=== PATIENT | male | born 1960 | race Caucasian/White ===

== ENCOUNTER 2019-02-22 21:02 | Outpatient (REF) | payer OTHER, SELFPAY ==
[2019-02-22 18:38] LABS: Anion Gap 10.9 mmol/L (3-11); BUN 11 mg/dL (7-18); CO2 26.1 mmol/L (21.0-32.0); Calcium 8.7 mg/dL (8.5-10.1); Calculated LDL 112 mg/dL; Chloride 103 mmol/L (98-107); Cholesterol 224 mg/dL (<200); Glucose 88 mg/dL (74-106); HDL Cholesterol 107 mg/dL (40-60); Potassium 4.4 mmol/L (3.5-5.1); Sodium 140 mmol/L (136-145); Triglyceride 26 mg/dL (<150)
== END 2019-02-22 21:22 ==
LOC: NCHCN 21:02
PROVIDERS: PCP Family Medicine; Visit Provider Nurse Practitioner Family
DX: Z00.00 Encounter for general adult medical examination without abnormal findings (principal); Z13.220 Encounter for screening for lipoid disorders; Z13.228 Encounter for screening for other metabolic disorders
CPT/HCPCS: 80048; 80061

== ENCOUNTER 2020-05-11 18:42 | Outpatient (REF) | payer BC, OTHER, SELFPAY ==
[2020-05-11 19:17] LABS: ALT 31 U/L (16-63); AST 24 U/L (15-37); Albumin 3.8 g/dL (3.4-5.0); Alkaline Phosphatase 39 U/L (46-116); Anion Gap 6.1 mmol/L (3-11); BUN 12 mg/dL (7-18); Bilirubin, Total 0.3 mg/dL (0.2-1.0); CO2 25.9 mmol/L (21.0-32.0); Calcium 8.7 mg/dL (8.5-10.1); Chloride 101 mmol/L (98-107); Glucose 142 mg/dL (74-106); Potassium 3.7 mmol/L (3.5-5.1); Sodium 133 mmol/L (136-145)
== END 2020-05-11 18:43 | disposition home or self-care (01) ==
LOC: NCHCN 18:42
PROVIDERS: PCP Family Medicine; Visit Provider Nurse Practitioner Family
DX: Z00.00 Encounter for general adult medical examination without abnormal findings (principal); F10.20 Alcohol dependence, uncomplicated
CPT/HCPCS: 80053

== ENCOUNTER 2022-03-28 00:22 | Outpatient (CLI) | payer BC, OTHER, SELFPAY ==
--- NOTE | 2022-03-28 | DI.RAD_ITS ---
Exam(s) XR KNEE LT 3V AP,LAT,KLEBER EXAM: XR KNEE LT 3V AP,LAT,KLEBER CLINICAL HISTORY: BILAT KNEE PAIN, M25.569. TECHNIQUE: 2D digital imaging was performed of the left knee. Three images were obtained. AP, late ral and PA tunnel views were obtained. COMPARISON: CR XR KNEE RT 3V AP,LAT,KLEBER from 03/28/2022 FINDINGS: BONES: No acute fracture is present. No bony destructive lesion is seen. JOINTS: In the lateral femoral tibial joint there is mild joint space narrowing and periarticular spu rring. Small spurs are seen at the posterior patella. No joint effusion is seen. SOFT TISSUE: Normal. IMPRESSION: Mild degenerative changes of the knee. DATA REPOSITORY: RADIATION DOSE DELIVERED:
--- NOTE | 2022-03-28 | DI.RAD_ITS ---
Exam(s) XR KNEE RT 3V AP,LAT,KLEBER EXAM: XR KNEE RT 3V AP,LAT,KLEBER CLINICAL HISTORY: BILAT KNEE PAIN, M25.569. TECHNIQUE: 2D digital imaging was performed of the right knee. Three views obtained. AP, lateral an d PA tunnel views were obtained. COMPARISON: No exams were available for comparison FINDINGS: BONES: No acute fracture is present. No bony destructive lesion is seen. JOINTS: There is mild tricompartment periarticular spurring present. No joint effusion is seen. SOFT TISSUE: Normal. IMPRESSION: Mild degenerative changes of the right knee. DATA REPOSITORY: RADIATION DOSE DELIVERED:
== END 2022-03-28 00:42 ==
PROVIDERS: PCP Family Medicine; Visit Provider Nurse Practitioner Family
DX: M17.0 Bilateral primary osteoarthritis of knee (principal)
CPT/HCPCS: 73562

== ENCOUNTER 2023-01-28 10:26 | Day surgery (SDC) | payer BC, OTHER, SELFPAY ==
[2023-01-28] VITALS (13 sets, daily range): BP systolic 89–118; BP diastolic 55–84; PULSE 56–96; RESP 14–19; TEMP 36–36.7; O2SAT 98–100; BMI 21.6
--- NOTE | 2023-01-28 06:56 | W.ANESPRE ---
General Info Date of Service Date Performed: 01/28/23 Height: 5 ft 6 in Weight: 60.781 kg Body Mass Index (BMI): 21.6 Surgical Procedure: Operation Date: 01/28/23 11:25 Proposed Procedure Side Surgeon p Herniorrhaphy Inguinal w/Mesh Bilateral Fouzia Arce MD Meds Allergies and Home Medications Allergies Allergy/AdvReac Type Severity Reaction Status Date / Time No Known Allergies Allergy Unverified 01/28/23 11:00 Home Medication Medication Instructions Recorded omeprazole 20 mg capsule,delayed 20 mg PO DAILY 11/06/14 release diclofenac sodium 1 % topical gel 2 g topical QID PRN 07/31/22 (Arthritis Pain (diclofenac)) Current Visit Medications: Current Medications Generic Name Dose Route Start Last Admin Trade Name Freq PRN Reason Stop Dose Admin Acetaminophen 1,000 mg 01/28/23 06:00 Acetaminophen 500 Mg Tab PO 01/28/23 23:59 PREOP LEONID Celecoxib 200 mg 01/28/23 06:00 Celecoxib 200 Mg Cap PO 01/28/23 23:59 PREOP LEONID Gabapentin 600 mg 01/28/23 06:00 Gabapentin 300 Mg Cap PO 01/28/23 23:59 PREOP LEONID Ringer's Solution 1,000 mls @ 80 mls/hr 01/28/23 06:00 IV 01/28/23 23:59 INFUSION LEONID Cefazolin Sodium/Dextrose 2 gm in 50 mls @ 100 mls/hr 01/28/23 06:00 Ancef Duplex IVPB 01/28/23 23:59 PREOP LEONID IV Miscellaneous Supplies 1 each 01/28/23 06:00 Iv Access IV 01/28/23 23:59 DIRECTED LEONID Sodium Chloride 0 ml 01/28/23 06:00 Normal Saline Flush 10 Ml Syr IV 01/28/23 23:59 PRN PRN Sodium Chloride 0 ml 01/28/23 06:00 Normal Saline 10 Ml Vial IJ 01/28/23 23:59 DIRECTED PRN Sterile Water 0 ml 01/28/23 06:00 Water,Injection,Sterile 10 Ml Vial IJ 01/28/23 23:59 DIRECTED PRN PFSH Active Problems Active Problems: Problem Status Onset Code Bilateral direct inguinal hernia K40.20 Inguinal hernia, left K40.90 Arthritis M19.90 Postoperative ileus K91.3 Low urine output R34 S/P laparoscopic appendectomy Z90.49 Medical History Medical History Incisional hernia Sleep disturbance Adjustment disorder with depressed mood Multiple nevi Sun-damaged skin Knee pain, bilateral Erectile dysfunction GERD (gastroesophageal reflux disease) Raynauds syndrome Surgical History Surgical History Colonoscopy - IV Sedation Tobacco Smoking/Tobacco Use Status: Never Alcohol Alcohol Intake: former Substance Use Substance use: Never Substance use type: does not use Vital Signs and Lab Results Vital Signs Most Recent Vital Signs in EMR: Temp Pulse Resp BP Pulse Ox 36.7 C 96 H 16 118/65 99 01/28/23 11:17 01/28/23 11:17 01/28/23 11:17 01/28/23 11:17 01/28/23 11:17 Lab Results Blood Type / Crossmatch: No Data to Display Complete Blood Count: No Data to Display Complete Metabolic Panel: No Data to Display Liver Function Panel: No Data to Display Coagulation Panel: No Data to Display Cardiac Panel: No Data to Display Arterial Blood Gas: No Data to Display Venous Blood Gas: No Data to Display Pancreas Panel: No Data to Display Thyroid Panel: No Data to Display Infectious Disease: No Data to Display Blood Cultures: No Data to Display Toxicology Panel: No Data to Display Anesthesia Assessment and Plan Anesthesia History Personal History: No History of Anesthesia Complications Family History: No Family History of Anesthesia Complications Exercise Tolerance Exercise Tolerance: Metabolic Equivalents>4 Cardiac & Pulmonary Exam Cardiac Exam: Normal S1/S2 Heart Sounds Pulmonary Exam: Clear Bilateral Breath Sounds Implantable Cardiac Device Does patient have a Pacemaker or an ICD?: No Airway Exam Known Difficult Airway: No Mallampati Class: 3 Mouth Opening: Normal (> 3cm) Thyromental Distance: Greater than 3 cm Neck Range of Motion: Full ROM Neck Circumference: Normal Teeth Condition: Normal Dentition ASA Classification ASA Score: ASA 2 Emergency Case?: No NPO Status NPO Status: NPO Clears >2 hours, Solids >8 hours Anesthesia Plan Resuscitation Status: Full Code Anesthesia Technique: General Anesthesia Airway Planned: LMA Pain Management: Surgeon and patient request nerve block Monitors Used: Standard Monitors Preoperative Comments:: 62 yo male for hernia repair. Sig PMHx: GERD (well controlled), raynauds (both hands), never smoker, Previous anes: - last che, mac 3 grade 1.
--- NOTE | 2023-01-28 07:01 | ROE_ITS ---
Date of service: 01/28/23 Time of Service: 13:40 Operative Note Operative Note DATE OF PROCEDURE: 01/28/23 PRE-OP DIAGNOSIS: bilateral inguinal hernias POST-OP DIAGNOSIS: same PROCEDURE: bilateral inguinal hernia repair with mesh SURGEON: Fouzia Arce MARKETING PROGRAMS SPECIALIST: Leatha Tilley Refer to Anesthesia Record ESTIMATED BLOOD LOSS: 25 PATHOLOGY: none sent COMPLICATIONS: None Patient was transported to: PACU Patient's condition: stable Implants: Left Inguinal hernia repair: PerFix Light plug (medium): [id number] LOT- [id number] - 2027-06-11 Right Inguinal hernia repair: PerFix Light plug (small): [id number] LOT- [id number] - 2025-12-11 Indications: Presley is back to see me today for a preoperative history and physical. I did examine his right inguinal area and he does have a small hernia on that side. I did discuss with him that I can do a bilateral open procedure. We also reviewed doing a bilateral laparoscopic procedure. I do not do enough of the laparoscopic cases so I have been referring patients either to [facility] or [facility]. I did give Presley that option if he wanted to go ahead with a laparoscopic repair. I did review with him the differences between open and laparoscopic repair. Mainly his recovery time would be sure with a laparoscopic repair. After our conversation Presley was comfortable proceeding with an open bilateral inguinal hernia repair. Again the procedure was reviewed with him as well as the risks, benefits and complications. He had a good understanding of the proce dure as well as its possible complications. Risks, benefits and complications have been reviewed. Complications include but are not limited to bleeding, infection, injury to vas, vessels and nerves, injury to bowel, recurrence (3- 5%), chronic pain and adverse reaction to medications. Questions were entertained and answered to their satisfaction and they wished to proceed. Findings: Large left indirect inguinal hernia and small indirect right inguinal hernia Procedure Description: After informed consent was obtained the patient was taken to the operating room and placed in a supine position. Monitors and SCDs were applied and a timeout was done. The patient's name, date of , procedure type, procedure site, allergies to medications, preoperative antibiotic, and DVT prophylaxis were all reviewed. Fire risk was assessed. Next anesthesia did a tap block on the both sides under ultrasound guidance. Please see their separate dictation. Once anesthesia was done the abdomen was prepped and draped in a sterile surgical fashion. 0.5% Marcaine was injected into the dermis in the left lower quadrant. An incision was made with a 10 blade in the left lower quadrant. Dissection was done with cautery through the subcutaneous tissues and Génesis's fascia down to the external oblique fascia. The external ring was identified and the external oblique fascia was opened sharply through the external ring. The cut fascia was grasped with hemostats the cord structures were identified and a Monisha drain was placed around them. The ilioinguinal nerve was identified and cut. The cremasteric muscle was dissected away from the cord structures using both cautery and blunt dissection. A hernia sac was identified and removed from the cord structures using blunt dissection. The hernia sac was suture ligated and amputated. The remnant was pushed back into the peritoneum. A medium plug was placed into the indirect defect and secured with 3-0 proline. A flat piece of mesh was then attached to the lacunar ligament using a 2-0 Prolene double armed suture. The mesh was secured laterally and medially with a 2-0 Prolene, with a running suture. The tails of the mesh were wrapped around the cord structures effectively cinching down the internal ring. Once the mesh was secured the tissues were irrigated with some normal saline. No bleeding was identified. The external oblique fascia was reapproximated using 2-0 Vicryl running suture. The Génesis's fascia was reapproximated using interrupted 3-0 Vicryl. The dermis was reapproximated with a running 4-0 Monocryl. Next 0.5% Marcaine was injected into the dermis in the right lower quadrant. An incision was made with a 10 blade in the right lower quadrant. Dissection was done with cautery through the subcutaneous tissues and Génesis's fascia down to the external oblique fascia. The external ring was identified and the external oblique fascia was opened sharply through the external ring. The cut fascia was grasped with hemostats the cord structures were identified and a [place] drain was placed around them. The ilioinguinal nerve was identified and cut. The cremasteric muscle was dissected away from the cord structures using both cautery and blunt dissection. A small hernia sac was identified and aydin sidney from the cord structures using blunt dissection. The hernia sac was suture ligated and amputated. The remnant was pushed back into the peritoneum. A small plug was placed into the indirect defect and secured with 3-0 proline. A flat piece of mesh was then attached to the lacunar ligament using a 2-0 Prolene double armed suture. The mesh was secured laterally and medially with a 2-0 Prolene, with a running suture. The tails of the mesh were wrapped around the cord structures effectively cinching down the internal ring. Once the mesh was secured the tissues were irrigated with some normal saline. No bleeding was identified. The external oblique fascia was reapproximated using 2-0 Vicryl running suture. The Génesis's fascia was reapproximated using interrupted 3-0 Vicryl. The dermis was reapproximated with a running 4-0 Monocryl. The skin on both sides were cleaned and dried and skin affix was applied. The patient was woken up and taken back to recovery in stable condition. There were no immediate complications. Sponge, instrument and needle counts were correct at the end of the case x2.
--- NOTE | 2023-01-28 07:03 | W.PM.DSUDISC ---
Date of service: 01/28/23 Time of Service: 14:33 Discharge Plan Disposition Patient Disposition: Home Condition: Stable Discharge Details Reason For Visit: bilateral inguinal hernias Attending Provider: Fouzia Arce Primary Care Provider: Presley Avery Home Meds and New Rx's Prescriptions: New oxycodone 5 mg tablet 5 mg PO Q6H PRNQty: 14 0RF Continued omeprazole 20 MG capsule,delayed release(DR/EC) 20 mg PO DAILY diclofenac sodium [Arthritis Pain (diclofenac)] 1 % gel 2 g topical QID PRN Rx Instructions: apply to single elbow, wrist or hand; for hand includes palm/fingers/back of hand Discharge Instructions Instructions: Inguinal Hernia Repair (DC) Additional Instructions: Activity at Home after surgery: 1. Make sure you walk outside at least 4 times per day 2. You should be able to climb a flight of stairs 3. No driving while in pain or taking pain medications 4. No strenuous activity or heavy lifting (no more then 10 lb) for 4 weeks (open surgery) Diet, Nutrition, & wound healin. Avoid alcohol until after you are recovered from your surgery 2. Make sure to eat plenty of lean protein (meat, fish, eggs, cottage cheese, beans) 3. Eat a variety of fruits and vegetables. Eat plenty of high fiber foods to avoid constipation. 4. Drink plenty of liquids to stay hydrated and avoid constipation Pain Medications: 1. Tylenol 650mg every 6 hours as needed and Ibuprofen 600 mg every 6 hours as needed. You may alternate between the 2 medications every 3 hours 2. If a narcotic has been prescribed take as directed only for breakthrough pain For Constipation: 1. Take Milk of Magnesia or MiraLax as needed for constipation Other: 1. You may shower daily. Do not scrub the incisions 2. Do not soak the incisions for 1 week 3. You may alternate ice and heat as needed for pain and swelling Wound Care: 1. Keep the incisions clean and dry Please call our office if you develop: 1. Fevers >101.5 2. Nausea or Vomiting 3. Worsening pain 4. Redness and thick discharge from the wounds If after hours please call the Hospital at and ask to speak to the on-call surgeon Stand Alone Forms: Anesthesia Discharge Inst., Anes.Nerve Block Instructions, Marisol Strickland (DSU) Referrals: Fouzia Arce MD [ [facility] STAFF PHYSICIAN] - Activity:: see above Remove Dressings/Wound Care:: Do Not Remove Shower/Bathe:: 24 hours Diet:: As Tolerated Discharge Orders Discharge Orders: Discharge Order (Routine); Ordered 01/28/23 Ordered By: Fouzia Arce DS: Diagnosis Discharge Diagnosis (1) Bilateral direct inguinal hernia: Status: Acute Asessment and Plan: The patient is doing well post-op from Bilateral inguinal hernia repairs with mesh surgery.? He is having no nausea or vomiting. He is tolerating liquids and a snack. The pt is not having any chest pain or SOB.? His pain is adequately controlled. ?HEENT:? no eye pain/drainage/redness/swelling. Mild sore throat ?Cardio- NSR, no chest pain, BP stable- see VS record ?Pulm: no sob or productive cough. No hemoptysis ?Incision- dressing is c/d/i w/ no excessive bleeding or drainage ?I discussed with the patient the findings at the time of surgery and the patient?s progress. ?We reviewed expectations at home; what the patient could expect for recovery time, and in the post-operative period.? We discussed the importance of walking to avoid blood clots and pneumonia.? We discussed and reviewed the patient's post-operative wound care and dressing needs.?? We reviewed their step-guerrier pain management plan, Rx called to the pharmacy of their choice.? We reviewed activity and limitations-see discharge instructions. We reviewed warning signs, and when to seek medical attention- see d/c instructions.?? Patient was given a postoperative follow-up appointment. Patient verbalized understanding of their postoperative instructions, how do to take care of themselves and their incision, and the pain management plan. Please see discharge instructions.?
[2023-01-28] MEDS: Acetaminophen 500 MG TAB 1000 MG PO (11:24)
[2023-01-28] MEDS: Gabapentin 300 MG CAP 600 MG PO (11:24)
[2023-01-28] MEDS: Celecoxib 200 MG CAP PO (11:24)
[2023-01-28] MEDS: Lactated Ringers 1,000 ML 80 ML IV (11:40)
[2023-01-28] MEDS: ceFAZolin 2 GM/50 ML BAG IVPB (12:02)
--- NOTE | 2023-01-28 12:15 | W.ANESNERVE ---
Nerve Block Single Injection Procedure Date and Time Date Performed: 01/28/23 Procedure Start: 12:08 Location Where Procedure Performed Procedure Location: Operating Room Procedure Stop: 12:18 Reason Performed: Postoperative Analgesia Requesting Provider: Fouzia Arce Timeout Performed Timeout Performed: Yes Monitoring Used ECG, Blood Pressure and SpO2 Sterility Sterility: Hand Hygiene, Surgical Cap, Surgical Mask, Sterile Gloves and Chlorhexidine Sedation Given During Procedure Sedation Given (Indicate Dose Given): No Sedation given Patient Mental Status Patient Mental Status: Performed under general anesthesia Nerve Block 1st Nerve Block: Laterality: Bilateral Block Type: TAP Bilateral Ultrasound Image Saved?: Yes Needle / Catheter Used: 100mm SonoPlex II Local Anesthetic Bolus (Indicate Dose Given): Half of Total block solution given into each side, Bupivacaine 0.25% Dose:: 20 mL and Exparel Dose:: 10 mL Additives (Indicate Dose Given): None Ultrasound: Sterile probe cover and gel used Nerve Stimulator: Not Used Paresthesia: None Procedure Tolerated: No Complications Procedure Outcome: Successful Performed By: Yoan Greco
[2023-01-28] MEDS: Bupivacaine 0.25% Pres-Free 30 ML VIAL ×2 (12:23→13:08)
[2023-01-28] MEDS: fentaNYL 100 MCG/2 ML VIAL IVP ×2 (13:58→14:10)
[2023-01-28] MEDS: oxyCODONE 5 MG TAB PO (15:44)
--- NOTE | 2023-01-28 16:26 | W.ANESPOSTOP ---
Postoperative Evaluation Date, Time and Location Date Performed: 01/28/23 Time Performed: 15:30 Patient Location: Day Surgery Unit Vital Signs Most Recent Imported Vital Signs: Most Recent Vital Signs Temp Pulse Resp BP Pulse Ox 36.4 C L 85 18 105/75 100 01/28/23 15:26 01/28/23 15:26 01/28/23 15:26 01/28/23 15:26 01/28/23 15:26 Pain Score Most Recent Pain Score: Most Recent Pain Score Pain Level 5 01/28/23 15:26 Assessment Mental Status: Awake (Alert & Oriented to Patient Baseline) Airway and Respiratory Function: Patent airway with normal (patient baseline) respiratory exam Cardiovascular Function: Hemodynamically Stable Hydration Status: Adequately Hydrated Nausea & Vomiting: No Nausea or Vomiting Pain: Pain is tolerable per patient Peripheral Nerve Block: Regional nerve block not resolved at time of post operative discharge
== END 2023-01-28 16:50 | disposition home or self-care (01) ==
LOC: SUR 10:26
PROVIDERS: PCP Family Medicine; Visit Provider Surgery
PROC: (CPT 49505; principal; 2023-01-28 11:15)
DX: K40.20 Bilateral inguinal hernia, without obstruction or gangrene, not specified as recurrent (principal); K21.9 Gastro-esophageal reflux disease without esophagitis; I73.00 Raynaud's syndrome without gangrene
CPT/HCPCS: 49505; 76942; C1781; J0690; J1100; J1885; J2405; J3010; J3475

== ENCOUNTER 2023-08-17 13:42 | Outpatient (REF) | payer BC, SELFPAY ==
[2023-08-17 16:29] LABS: ALT 27 U/L (16-63); AST 19 U/L (15-37); Albumin 4.1 g/dL (3.4-5.0); Alkaline Phosphatase 42 U/L (46-116); Anion Gap 8.8 mmol/L (3-11); BUN 13 mg/dL (7-18); Bilirubin, Total 0.3 mg/dL (0.2-1.0); CO2 26.2 mmol/L (21.0-32.0); Calcium 8.7 mg/dL (8.5-10.1); Calculated LDL 148 mg/dL (<100); Chloride 105 mmol/L (98-107); Cholesterol 238 mg/dL (<200); Estimated GFR 85.63 (mL/min/1.73m2); Glucose 119 mg/dL (74-106); HDL Cholesterol 82 mg/dL (40-60); Potassium 4.3 mmol/L (3.5-5.1); Sodium 140 mmol/L (136-145); Total Protein 6.9 g/dL (6.4-8.2); Triglyceride 43 mg/dL (<150)
[2023-08-17 23:04] LABS: PSA, Screening 0.6 ng/mL (<=4.5)
== END 2023-08-17 13:43 | disposition home or self-care (01) ==
LOC: NCHCN 13:42
PROVIDERS: PCP Family Medicine; Visit Provider Nurse Practitioner Family
DX: Z12.5 Encounter for screening for malignant neoplasm of prostate (principal); E78.5 Hyperlipidemia, unspecified
CPT/HCPCS: 80053; 80061; 84153

== ENCOUNTER 2023-12-11 18:55 | Outpatient (REF) | payer BC, SELFPAY ==
--- OUTSIDE RECORDS SUMMARY | 2023-12-11 19:04 | XMS_ITS | Clinical Summary ---
Author Organization [facility] Address [address] [place] [address] Care Team Providers Care Medicare Coordinator Name Role Phone Jorden Bay MD Primary Care Provider Social History Tobacco Use Types Packs/Day Years Used Date Smoking Tobacco: Never Assessed Sex and Gender Information Value Date Recorded Sex Assigned at Not on file Gender Identity Not on file Sexual Orientation Not on file Plan of Treatment Health Maintenance Due Date Last Done Comments Hepatitis C Screen 1960 RSV Immunization ( o r 60+ Years) (1 - 1-dose 60+ series) 2022 COVID-19 Vaccine ( season) 2022 Care Teams Medicare Coordinator Relationship Specialty Start Date End Date Jorden Bay MD PCP - General 07/10/15
--- OUTSIDE RECORDS SUMMARY | 2023-12-11 19:04 | XMS_ITS | Encounter Summary ---
Author Organization [facility] Address [address] [place] [address] Care Team Providers Care Pediatric Cardiologist Name Role Phone Jorden Bay MD Primary Care Provider [phone] Encounter Details Date Type Department Care Team (Late st Contact Info) Description 07/08/2015 Results Only [facility] [phone] Dyllan Wolf, DO [address] [place] [address] Social History Tobacco Use Types Packs/Day Years Used Date Smoking Tobacco: Never Assessed Sex and Gender Information Value Date Recorded Sex Assigned at Not on file Gender Identity Not on file Sexual Orientation Not on file documented as of this encounter Plan of Treatment Not on file documented as of this encounter Procedures Procedure Name Priority Date/Time Associated Diagnosis Comments SURGICAL PATHOLOGY Routine 07/08/2015 9:55 EDT documented in this encounter Results * SURGICAL PATHOLOGY (07/08/2015 9:55 EDT) Pathology Report: SURGICAL PATHOLOGY REPORT Reports generated via electronic interface contain original data; however they are lacking the format of the original report. Caution should be taken when reading/interpret ing unformatted reports. Name: ? NIKOGLADYS ? Accession #: ? [id number] ? : ? 1960 (Age: 55) ??M ? Collect Date: ? 07/08/2015 ? Location: ? [facility] ? Receive Date: ? 07/10/2015 ? Provider: DYLLAN WOLF DO Copy to: JODREN BAY MD ? Final Pathologic Diagnosis: APPENDIX, APPENDECTOMY: - ??Acute appendicitis with diverticulitis and marked periappendicitis. Document reviewed and electronically signed by: YAZMIN CHAHAL MD Report ??Date: 07/12/2015 08:39 By the signature above, the attending physician certifies that he/she has personally conducted a gross and/or microscopic examination of the described specimens and rendered or confirmed the above diagnosis. Specimen(s) Received: Appendix Clinical History: Acute appendicitis Gross Description: ? Received in formalin labelled with proper patient identification (initials G, J) and appendix is a vermiform appendix (1.5 cm in length x 1.3 cm in diameter), with a moderate amount of attached mesoappendix. The proximal margin is stapled. ? The serosa is mchugh-navas and shaggy and hemorrhagic with a white exudate toward the base margin. A portion of the distal ends is previously transected. Cut surfaces reveal a mchugh-white mucinous luminal surface with a thickened wall up to 0.3 cm. ??A focus of wall thinning is noted and patient relations representative sections are submitted in block 2.. ??The proximal margin is inked blue. ? The section adjacent to the proximal stapled margin and one half of the longitudinally bisected distal tip are submitted in 1. Armida07/10/2015 10:55 AM End of Report [facility] 07/08/2015 9:55 EDT 07/10/2015 9:55 EDT Dyllan Wolf DO PATHOLOGY ORDERABLES [facility] [address] [place] [address] documented in this encounter Visit Diagnoses Not on filedocumented in this encounter Care Teams Pediatric Cardiologist Relationship Specialty Start Date End Date Jorden Bay MD PCP - General 07/10/15 documented as of this encounter
--- OUTSIDE RECORDS SUMMARY | 2023-12-11 19:04 | XMS_ITS | Encounter Summary ---
Author Organization [facility] Address [address] [place] [address] Care Team Providers Care Printing Plate Maker Name Role Phone Jorden Bay MD Primary Care Provider [phone] Encounter Details Date Type Department Care Team (Late st Contact Info) Description 08/17/2023 Lab Requisition [facility] Pathology & Laboratory Medicine - [address] [id number] Outr Resulting Lab, Provider Social History Tobacco Use Types Packs/Day Years Used Date Smoking Tobacco: Never Assessed Sex and Gender Information Value Date Recorded Sex Assigned at Not on file Gender Identity Not on file Sexual Orientation Not on file documented as of this encounter Plan of Treatment Not on file documented as of this encounter Procedures Procedure Name Priority Date/Time Associated Diagnosis Comments PSA TOTAL, DIAGNOSTIC Routine 08/17/2023 10:40 EDT documented in this encounter Results * PSA TOTAL, DIAGNOSTIC (08/17/2023 10:40 EDT) PSA 0.6 <=4.5 ng/mL 08/17/2023 23:00 EDT [facility] Blood VENOUS BLOOD / Unknown 08/17/2023 10:40 EDT 08/17/2023 21:47 EDT Narrative [facility] - 08/17/2023 23:00 EDT NOTE: Serum PSA concentration should not be interpreted as absolute evidence for the presence or absence of malignant disease. Assayed on Siemens [employer] XPT using chemiluminescent technology.??Values obtained by using different assay methods cannot be used interchangeably. Provider Outr Resulting Lab CHEMISTRY & BLOOD GAS ORDERABLES [facility] [address] [place] [address] documented in this encounter Visit Diagnoses Not on filedocumented in this encounter Care Teams Printing Plate Maker Relationship Specialty Start Date End Date Jorden Bay MD PCP - General 07/10/15 documented as of this encounter
--- OUTSIDE RECORDS SUMMARY | 2023-12-11 19:04 | XMS_ITS | Clinical Summary ---
Author Organization [facility] Address [facility] [place] [address] Care Team Providers Care Pit Clerk Name Role Phone Presley Avery MD Primary Care Provider [phone] Allergies No known active allergies Medications No known medications Active Problems No known active problems Social History Tobacco Use Types Packs/Day Years Used Date Smoking Tobacco: Never Assessed Sex and Gender Information Value Date Recorded Sex Assigned at Not on file Gender Identity Not on file Sexual Orientation Not on file Plan of Treatment Upcoming Encounters Date Type Department Care Team (Late st Contact Info) Description 05/11/2024 2:00 PM EST Office Visit Dermatology at [facility] [address] [place] [address] Nimco Johnston MD [facility] [address] [place] [address] Health Maintenance Due Date Last Done Comments CT Colonography 1960 Colonoscopy 1960 Colorectal Cancer Screening 1960 FIT DNA 1960 FIT 1960 Sigmoidoscopy (10 year) with FIT yearly 1960 Sigmoidoscopy 1960 HIV screen 02/21/1980 Hepatitis C Screening 02/21/1980 Lipid Screening 02/21/1980 Tetanus/Diphtheria/Pertussis Vaccines (1 - Tdap) 02/20 Zoster vaccine (1 of 2) 02/21/2012 Advance Directive 2017 Covid-19 Vaccine ( - 2023-24 season) 2023 Influenza (Flu) vaccine (1 o f 1 - Influenza standard series) 11/15/2023 Care Teams Pit Clerk Relationship Specialty Start Date End Date Presley Avery MD PCP - General Family Medicine 04/13/23
--- OUTSIDE RECORDS SUMMARY | 2023-12-11 19:04 | XMS_ITS | Encounter Summary ---
Author Organization [facility] Address [facility] [place] [address] Care Team Providers Care Industrial Renderer Name Role Phone Ayana Palencia APRN Primary Care Provider [phone] Reason for Visit * Consultation (Routine) - Closed Specialty Diagnoses / Procedures Referred By Madeline canales Referred To Contact Dermatology Diagnoses Other benign neoplasm of skin, unspecified Other specified acute skin changes due to ultraviolet radiation Multiple Nevi, Sun-Damaged Skin; New Patient-Notes Received Procedures Consult Ayana Palencia APRN [address] [place] [address] [facility] Dermatology [address] [place] [address] Referral ID Status Reason Start Date Expiration Date Visits Re quested Visits Authorized [id number] Closed 11/12/2021 11/12/2022 1 1 Encounter Details Date Type Department Care Team (Late st Contact Info) Description 12/18/2021 8:00 AM EDT Office Visit Dermatology at [facility] [address] [place] [address] Nimco Johnston MD [facility] [place] [address] [place] (actinic keratosis) Social History Tobacco Use Types Packs/Day Years Used Date Smoking Tobacco: Never Assessed Sex and Gender Information Value Date Recorded Sex Assigned at Not on file Gender Identity Not on file Sexual Orientation Not on file documented as of this encounter Progress Notes * Nimco Johnston - 12/18/2021 8:00 AM EDT Images from the original note were not included. DEPARTMENT OF DERMATOLOGY Medical Dermatology Clinic Provider: Nimco Johnston MD Patient's preferred name Presley Preferred contact method for results [x]Phone []myD-H []Letter Detailed phone message OK? Yes Are there any other people with whom we may discuss your care? Courtney Keane Past Medical History Date, location, treatment Melanoma No Dysplastic nevi No SCC No BCC No AKs LN2 UV Exposure & Protection Sun Protection: yes Other relevant past medical history Family History Details Melanoma NMSC Brother- unknown type. Other relevant family history Breast cancer Social History Occupation: [employer] Hobbies: Motorcycles, camping Other: with 3 children. Pre-Procedure Screening Details Allergy to lidocaine, epinephrine, Dermabond, chlorhexidine, or adhesives No Bleeding disorder or blood thinners No Pacemaker, defibrillator, deep brain stimulator, cochlear implant No History of Present Illness: Presley Keane is a 61 y.o. Patient is new and self- referred to the clinic for dry and crusty spot on right mandaen that has been there for 3 years. Does not itch, never bled, and isn't painful. -Uses triamcinolone for redness on the forehead. Medications: Reviewed in eD-H Allergies: Reviewed in eD-H Skin Examination: Focused skin examination of the face was normal with the exception of the findings below. Assessment/Plan Actinic Keratosis - Ill-defined gritty papule on the right mandaen and right superior helix x1 - Explained premalignant potential of these lesions. - Discussed treatment with cryotherapy. Patient elects to proceed with cryotherapy today. - Instructed patient to return to clinic for re-evaluation if lesion(s) does not resolve as expected with this treatment. Procedure: Destruction of lesion(s) with cryotherapy (LN2). Location(s): As noted above. Number: 2 Discussed procedure and expectations, including risks and benefits. Verbal consent obtained. Treated with LN2. There were no complications; Patient tolerated the procedure well. Post-procedure expectations and wound care reviewed. Other: ??? N/A RTC: Next available FSE []Note routed to membership secretary []Recall placed in scheduling system [x]Appointment scheduled at checkout Scribe attestation: Amanda Holman, TERRY has performed the documentation for this encounter in the presence of and acting as a scribe for Nimco Johnston MD. I performed the above scribed service and agree with the accuracy of the documentation in this encounter. Reviewed and signed by: Nimco Johnston MD Dermatology [facility] * Anna Reeves MD - 12/18/2021 8:00 AM EDT I directly supervised the resident during this office visit. The resident physician presented the history and physical exam to me. I then saw and examined this patient with the resident. We reviewed the history and pertinent details and I confirmed the physical exam findings. I agree with the details of the history and physical exam as documented in the resident physician's note. Anna Reeves MD Staff Physician [facility] Dermatology documented in this encounter Miscellaneous Notes * Addendum Note - Anna Reeves MD - 12/18/2021 8:00 AM EDTAddended by: ANNA REEVES on: 12/27/2021 12:49 PM Modules accepted: Level of Service documented in this encounter Plan of Treatment Upcoming Encounters Date Type Department Care Team (Late st Contact Info) Description 05/11/2024 2:00 PM EST Office Visit Dermatology at [facility] [address] [place] [address] Nimco Johnston MD [facility] [place] [address] documented as of this encounter Visit Diagnoses Diagnosis AK (actinic keratosis) Actinic keratosis documented in this encounter Care Teams Industrial Renderer Relationship Specialty Start Date End Date Ayana Palencia, HYPERION ADMINISTRATOR [address] [place] [address] PCP - General Family Medicine 12/18/21 04/12/23 documented as of this encounter
--- OUTSIDE RECORDS SUMMARY | 2023-12-11 19:04 | XMS_ITS | Encounter Summary ---
Author Organization [facility] Address [address] [place] [address] Care Team Providers Care Oim Architect Name Role Phone Unavailable Primary Care Provider Unavailabl e Encounter Details Date Type Department Care Team (Latest Contact Info) Description 07/09/2015 8:09 EDT - 07/09/2015 23:59 EDT Hospital Encounter [address] [address] Unknown, Provider, Discharge Disposition: Home or Self Care Social History Tobacco Use Types Packs/Day Years Used Date Smoking Tobacco: Never Assessed Sex and Gender Information Value Date Recorded Sex Assigned at Not on file Gender Identity Not on file Sexual Orientation Not on file documented as of this encounter Discharge Disposition Disposition Code Departure Means Destination Home or Self Intermediate documented in this encounter Plan of Treatment Not on file documented as of this encounter Visit Diagnoses Not on filedocumented in this encounter
--- OUTSIDE RECORDS SUMMARY | 2023-12-11 19:04 | XMS_ITS | Encounter Summary ---
Author Organization [facility] Address [facility] [place] [address] Care Team Providers Care Transformer Tester Name Role Phone Ayana Palencia APRN Primary Care Provider [phone] Encounter Details Date Type Department Care Team (Latest Contact Info) Description 02/13/2022 Travel Social History Tobacco Use Types Packs/Day Years Used Date Smoking Tobacco: Never Assessed Sex and Gender Information Value Date Recorded Sex Assigned at Not on file Gender Identity Not on file Sexual Orientation Not on file documented as of this encounter Plan of Treatment Upcoming Encounters Date Type Department Care Team (Late st Contact Info) Description 05/11/2024 2:00 PM EST Office Visit Dermatology at [facility] [address] [place] [address] Nimco Johnston MD [facility] [address] [address] documented as of this encounter Visit Diagnoses Not on filedocumented in this encounter Care Teams Transformer Tester Relationship Specialty Start Date End Date Ayana Palencia APRN [address] [place] [address] PCP - General Family Medicine 12/18/21 04/12/23 documented as of this encounter
--- OUTSIDE RECORDS SUMMARY | 2023-12-11 19:04 | XMS_ITS | Referral Summary ---
Author Organization [facility] Address [address] [place] [address] Care Team Providers Care Dog Food Dough Mixer Name Role Phone Jorden Bay MD Primary Care Provider Social History Tobacco Use Types Packs/Day Years Used Date Smoking Tobacco: Never Assessed Sex and Gender Information Value Date Recorded Sex Assigned at Not on file Gender Identity Not on file Sexual Orientation Not on file Plan of Treatment Not on file Care Teams Dog Food Dough Mixer Relationship Specialty Start Date End Date Jorden Bay MD PCP - General 07/10/15
--- OUTSIDE RECORDS SUMMARY | 2023-12-11 19:04 | XMS_ITS | Encounter Summary ---
Author Organization [facility] Address [facility] [place] [address] Care Team Providers Care Livestock Slaughterer Name Role Phone Ayana Palencia APRN Primary Care Provider [phone] Reason for Visit * Reason Comments Skin Check Encounter Details Date Type Department Care Team (Late st Contact Info) Description 02/13/2022 8:20 AM EST Office Visit Dermatology at [facility] [address] [place] [address] Nimco Johnston MD [facility] [place] [address] Actinic keratoses; Seborrheic keratoses; Lentigines; Multiple benign nevi of upper extremity, lower extremity, and trunk; Lew angioma; Seborrheic dermatitis Social History Tobacco Use Types Packs/Day Years Used Date Smoking Tobacco: Never Assessed Sex and Gender Information Value Date Recorded Sex Assigned at Not on file Gender Identity Not on file Sexual Orientation Not on file documented as of this encounter Progress Notes * Nimco Johnston - 02/13/2022 8:20 AM EST Images from the original note were not included. DEPARTMENT OF DERMATOLOGY Medical Dermatology Clinic Provider: Nimco Johnston MD Patient's preferred name Presley Preferred contact method for results [x]?Phone []?myD-H []?Letter Detailed phone message OK? Yes Are there any other people with whom we may discuss your care? Courtney Keane ?? Past Medical History Date, location, treatment Melanoma No Dysplastic nevi No SCC No BCC No AKs LN2 UV Exposure & Protection Sun Protection: yes Other relevant past medical history ?? Family History Details Melanoma ?? NMSC Brother- unknown type. Other relevant family history Breast cancer Social History Occupation: [employer] Hobbies: Motorcycles, camping Other: with 3 children. ?? Pre-Procedure Screening Details Allergy to lidocaine, epinephrine, Dermabond, chlorhexidine, or adhesives No Bleeding disorder or blood thinners No Pacemaker, defibrillator, deep brain stimulator, cochlear implant No History of Present Illness: Presley Keane is a 61 y.o. Patient returns to clinic today for full skin exam. -he returns for a full skin exam without any new or specific skin concerns Last visit at Dermatology: 12/18/2021 Last visit with this provider: 12/18/2021 Medications: Reviewed in eD-H Allergies: Reviewed in eD-H Skin Examination: Full skin examination: Patient asked to undress to their comfort level. Verbalized that the provider???s preference is that the patient remove all clothing and that the provider will not examine areas patient elects to keep covered. Patient elects to keep underwear on and have the following examined: scalp, hair, face, ears, neck, chest, axillae, abdomen, back, and upper and lower extremities. Genitalia and buttocks were not examined. Assessment/Plan #. . Actinic Keratosis - Ill-defined gritty papules on the right cheek x3, left helix X1 - Explained premalignant potential of these lesions. - Discussed treatment with cryotherapy. Patient elects to proceed with cryotherapy today. - Instructed patient to return to clinic for re-evaluation if lesion(s) does not resolve as expected with this treatment. Procedure: Destruction of lesion(s) with cryotherapy (LN2). Location(s): As noted above. Number: 4 Discussed procedure and expectations, including risks and benefits. Verbal consent obtained. Treated with LN2. There were no complications; Patient tolerated the procedure well. Post-procedure expectations and wound care reviewed. #. Nevi-scattered brown macules on the back, chest, and face -w/o concerning findings on dermoscopy -pt reassured -advised the pt to monitor nevi monthly and if they are growing, changing color, or new lesions appear pt should call back to be seen before their next FBSE #. Seborrheic keratoses-Scattered yellow to mchugh stuck on papules 3-6 mm in size on chest, back, arms, and legs -benign nature of lesions discussed -patient reassured. #. Lew Angioma(s) - 0.2-0.4cm bright red, well-demarcated papule(s) on trunk and extremeties - Benign. No treatment needed. #. Solar lentigines -scattered light brown 3-6mm macules on the upper back, chest, BL arms and BL lower extremities -Pt reassured #. Seborrheic Dermatitis - Erythematous plaques with greasy scale involving the eyebrows and forehead - Discussed the pathogenesis of this condition which is thought to involve an inflammatory responseto Malasezzia furfur yeast - Patient declines any treatments today - Recommended rotating OTC dandruff shampoos containing salicylic acid (Tsal), zinc pyrithione (Head and Shoulders), selenium sulfide (Selsun Blue) daily, preferably alternating between several products weekly. Instructed patient to let sit on scalp 5-10 minutes prior to rinsing. Other: ??? N/A RTC: 1 year for FSE []Note routed to department secretary [x]Recall placed in scheduling system []Appointment scheduled at checkout Scribe attestation: Janis Hess [facility] has performed the documentation for this encounter inthe presence of and acting as a scribe for Nimco Johnston MD. I performed the above scribed service and agree with the accuracy of the documentation in this encounter. Reviewed and signed by: Nimco Johnston MD Dermatology [facility] Patient seen and evaluated with staff frame polisher: Merna Bowen MD Dermatology [facility] * Merna Bowen MD - 02/13/2022 8:20 AM EST I directly supervised the Dermatology resident during this office visit. The resident presented thehistory and physical exam to me. I then saw and examined this patient with the resident. We reviewed the history and pertinent details and I confirmed the physical findings. I agree with the details of the history and physical exam as documented in the resident's note. MERNA BOWEN MD Staff Physician documented in this encounter Plan of Treatment Upcoming Encounters Date Type Department Care Team (Late st Contact Info) Description 05/11/2024 2:00 PM EST Office Visit Dermatology at [facility] [address] [place] [address] Nimco Johnston MD [facility] [place] [address] documented as of this encounter Visit Diagnoses Diagnosis Actinic keratoses Actinic keratosis Seborrheic keratoses Lentigines Other dyschromia Multiple benign nevi of upper extremity, lower extremity, and trunk Lew angioma Nevus, non-neoplastic Seborrheic dermatitis Seborrheic dermatitis, unspecified documented in this encounter Care Teams Livestock Slaughterer Relationship Specialty Start Date End Date Ayana Palencia APRN [address] [place] [address] PCP - General Family Medicine 12/18/21 04/12/23 documented as of this encounter
--- OUTSIDE RECORDS SUMMARY | 2023-12-11 19:04 | XMS_ITS | Encounter Summary ---
Author Organization [facility] Address [facility] [place] [address] Care Team Providers Care Mailing Section Clerk Name Role Phone Presley Avery MD Primary Care Provider [phone] Encounter Details Date Type Department Care Team (Latest Contact Info) Description 04/13/2023 Travel Social History Tobacco Use Types Packs/Day [...] 2:00 PM EST Office Visit Dermatology at [facility] [address] [place] [address] Nimco Johnston MD [facility] [address] [place] [address] documented as of this encounter Visit Diagnoses Not on filedocumented in this encounter Care Teams Mailing Section Clerk Relationship Specialty Start Date End Date Presley Avery MD PCP - General Family Medicine 04/13/23 documented as of this encounter
--- OUTSIDE RECORDS SUMMARY | 2023-12-11 19:04 | XMS_ITS | Encounter Summary ---
Author Organization [facility] Address [facility] [place] [address] Care Team Providers Care Forepart Laster Name Role Phone Presley Avery MD Primary Care Provider [phone] Encounter Details Date Type Department Care Team (Late st Contact Info) Description 04/13/2023 3:00 PM EST Office Visit Dermatology at [facility] [address] [place] [address] Nimco Johnston MD [facility] [place] [address] Actinic keratoses; Seborrheic keratoses; Lew angioma; Lentigines; Multiple benign nevi of upper extremity, lower extremity, and trunk Social History Tobacco Use Types Packs/Day Years Used Date Smoking Tobacco: Never Assessed Sex and Gender Information Value Date Recorded Sex Assigned at Not on file Gender Identity Not on file Sexual Orientation Not on file documented as of this encounter Progress Notes * Nimco Johnston MD - 04/13/2023 3:00 PM EST Images from the original note were [...] of Present Illness: Presley Keane is a 63 y.o. Patient returns to clinic today for a full skin exam with the following concerns: - Spot on right scalp, present for about a year Last visit at Dermatology: 02/13/2022 Medications: Reviewed in eD-H Allergies: Reviewed in eD-H Skin Examination: Full skin examination: Patient asked to undress to their comfort level. Verbalized that the provider's preference is that patient remove all clothing and that the provider will not examine areas patient elects to keep covered. Examination of the scalp, hair, head, face, ears, neck, chest, axillae, abdomen, back, buttocks, and upper and lower extremities was normal with the exception of the findings below. Genitalia not examined. Assessment/Plan #. Actinic Keratoses - Ill-defined gritty papules on the right helix x2, right cheek x1, left cheekx1. - Explained premalignant potential of these lesions. [...] Post-procedure expectations and wound care reviewed. #. Seborrheic Keratoses - Stuck on, waxy papules on the trunk and extremities: including patient's concern on right parietal scalp - Discussed benign nature of lesions and provided reassurance. No treatment necessary at this time. #. Lew Angiomas - Multiple bright red, well-demarcated papules on the trunk and extremities. - Discussed benign nature of lesions and provided reassurance. No treatment necessary at this time. #. Nevi-scattered brown macules on the back, chest, and face -w/o concerning findings on dermoscopy -pt reassured -advised the pt to monitor nevi monthly and if they are growing, changing color, or new lesions appear pt should call back to be seen before their next FBSE #. Solar lentigines -scattered light brown 3-6mm macules on the upper back, chest, BL arms and BL lower extremities -Pt reassured Other: N/A RTC: 1 year FSE // return sooner as needed []Note routed to secretary administrative assistant []Recall placed in scheduling system [x]Appointment scheduled at checkout Scribe attestation: Trudy Elena [facility] has performed the documentation for this encounter in thepresence of and acting as a scribe for Nimco Johnston MD. I performed the above scribed service and agree with the accuracy of the documentation in this encounter. Reviewed and signed by: Nimco Johnston MD Dermatology [facility] documented in this encounter Plan of Treatment Upcoming Encounters Date Type Department Care Team (Late st Contact Info) Description 05/11/2024 2:00 PM EST Office Visit Dermatology at [facility] [address] [place] [address] Nimco Johnston MD [facility] [place] [address] documented as of this encounter Visit Diagnoses Diagnosis Actinic keratoses Actinic keratosis Seborrheic keratoses Lew angioma Nevus, non-neoplastic Lentigines Other dyschromia Multiple benign nevi of upper extremity, lower extremity, and trunk documented in this encounter Care Teams Forepart Laster Relationship Specialty Start Date End Date Presley Avery MD PCP - General Family Medicine 04/13/23 documented as of this encounter
[2023-12-13 15:05] LABS: HSV 1 DNA Result Negative (Negative); HSV 2 DNA Result Negative (Negative)
== END 2023-12-11 18:56 | disposition home or self-care (01) ==
LOC: LBN 18:55
PROVIDERS: PCP Family Medicine; Visit Provider Physician Assistant Medical
DX: K13.0 Diseases of lips (principal)
CPT/HCPCS: 87529; 87070; 87205

== ENCOUNTER 2024-12-05 15:34 | Outpatient (REF) | payer OTHER, SELFPAY ==
--- NOTE | 2024-12-05 13:15 | SKI_PTH ---
PATIENT: Presley Keane LOC: [facility] U#:[id number] AGE/SX: 64/M ROOM: RE12/05/[address]: SHMUEL KAHN NP : 1960 BED: DIS: 12/05/2024 SPEC #: [id number] RECD: 12/05/24 17:04 STATUS: YULI MARINELLI #: [id number] SIMÓN: 12/05/24 13:[address]: SHMUEL KAHN DEPT: Surgical Specimen RECD BY: Stephanie Larsen ENTERED: 12/05/24 17:04 SP TYPE: JANNIE GARNER DR: Presley Avery Tissues: 1 - SKIN BIOPSY(SHAVE/PUNCH) Procedures: SKIN LEVEL 4 Comments: [id number]
== END 2024-12-05 15:35 | disposition home or self-care (01) ==
LOC: NCHCN 15:34
PROVIDERS: PCP Family Medicine; Visit Provider Nurse Practitioner Family
DX: L82.1 Other seborrheic keratosis (principal)
CPT/HCPCS: 88305